=== PATIENT | male | born 1975 | race Caucasian/White ===

== ENCOUNTER 2017-09-07 15:30 | Emergency (ER) | payer OTHER ==
--- NOTE | 2017-09-07 18:38 | ER Document Report ---
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 then go into the left eye. no fever or orbital swelling. Associated Symptoms: None Exacerbated by: Denies Relieved by: Denies - ROS ROS below otherwise negative: Yes Systems Reviewed and Negative: Yes All other systems reviewed and negative - EENT EENT: REPORTS: Eye problems Past Medical History - General Information source: Patient - Social History Smoking Status: Unknown if Ever Smoked Frequency of alcohol use: None Drug Abuse: None Lives with: Family Family History: Reviewed & Not Pertinent Patient has suicidal ideation: No Patient has homicidal ideation: No - Medical History Medical History: Negative Renal/ Medical History: Denies: Hx Peritoneal Dialysis Surgical Hx: Negative Vertical Provider Document - CONSTITUTIONAL Agree With Documented VS: Yes Exam Limitations: No Limitations General Appearance: No Apparent Distress - INFECTION CONTROL TRAVEL OUTSIDE OF THE [place] IN LAST 30 DAYS: No - HEENT HEENT: Conjuctival Injection - delphine palprebral more than bulabr. anteior chamber clear, no fluorescein uptake. no ulcer.no preauricular nodes. - NECK Neck: Supple. negative: Lymphadenopathy-Left, Lymphadenopathy-Right - RESPIRATORY O2 Sat by Pulse Oximetry: 97 - NEURO Level of Consciousness: Awake, Alert Course - Re-evaluation Re-evalutation: 09/07/17 18:51 Visual acuity 20/25 each eye. 09/07/17 19:42 tonopen 19.95 right, 18.95 left eye 09/07/17 19:58 Patient did not have the money to get the eyedrops so I dispensed from the pharmacy here - Vital Signs Vital signs: Temp Pulse Resp BP Pulse Ox 98.3 F 96 16 199/106 H 97 09/07/17 18:31 09/07/17 18:31 09/07/17 18:31 09/07/17 18:31 09/07/17 18:31 Discharge - Discharge Clinical Impression: Bilateral conjunctivitis Qualifiers: Conjunctivitis type: acute Acute conjunctivitis type: unspecified Qualified Code(s): H10.33 - Unspecified acute conjunctivitis, bilateral Condition: Good Disposition: HOME, SELF-CARE Instructions: Conjunctivitis ([facility]), Eyedrop Use ([facility]) Additional Instructions: 1 eye drop each every 3 times per day for 7 days if your eyes are not well on sunday see the eye doctor if your eyes wosen over the weekend return to the ER for recheck Prescriptions: Besifloxacin HCl [Besivance 0.6% Oph Susp 5 ml] 1 drop OU TID #1 bottle Referrals: JOSE M ZHANG MD [ACTIVE STAFF] - Follow up as needed
[2017-09-07] MEDS ORDERED: TETRACAINE HCL 0.5% OPH SOLN 0.6 ML DROPERETTE OU ONE (18:56)
[2017-09-07 19:56] VITALS: BP 166/105
[2017-09-07] MEDS ORDERED: BESIFLOXACIN HCL 0.6% OPH SUSP 5 ML BOTTLE OU ONE (19:58)
== END 2017-09-07 20:07 | disposition home or self-care (01) ==
LOC: ER 15:30
DX: H10.33 Unspecified acute conjunctivitis, bilateral (principal)
CPT/HCPCS: 99282

== ENCOUNTER → 2017-09-25 | Outpatient (CLI) | payer OTHER ==
[2017-09-25 09:25] LABS: ABSOLUTE BASOPHILS # (AUTO) 0.1 10^3/uL (0.0-0.2); ABSOLUTE EOSINOPHILS # (AUTO) 0.3 10^3/uL (0.0-0.6); ABSOLUTE LYMPHOCYTES (AUTO) 1.5 10^3/uL (0.5-4.7); ABSOLUTE MONOCYTES (AUTO) 0.8 10^3/uL (0.1-1.4); ABSOLUTE NEUT (AUTO) 6.9 10^3/uL (1.7-8.2); BASOPHILS % (AUTO) 0.9 % (0-2); EOSINOPHILS % (AUTO) 2.9 % (0-6); HEMATOCRIT 39.3 % (37.9-51.0); HEMOGLOBIN 13.3 g/dL (13.5-17.0); LYMPHOCYTES % (AUTO) 15.7 % (13-45); MEAN CORPUSCULAR HEMOGLOBIN 30.1 pg (27.0-33.4); MEAN CORPUSCULAR HGB CONC 33.9 g/dL (32.0-36.0); MEAN CORPUSCULAR VOLUME 89 fl (80-97); MONOCYTES % (AUTO) 8.1 % (3-13); PLATELET COUNT 264 10^3/uL (150-450); RED BLOOD COUNT 4.42 10^6/uL (4.35-5.55); RED CELL DISTRIBUTION WIDTH 13.5 % (11.5-14.0); SEGMENTED NEUTROPHILS % (AUTO) 72.4 % (42-78); TOTAL CELLS COUNTED % (AUTO) 100 %; WHITE BLOOD COUNT 9.6 10^3/uL (4.0-10.5)
[2017-09-25 09:42] LABS: ALBUMIN 3.6 g/dL (3.5-5.0); ANION GAP 9 (5-19); BLOOD UREA NITROGEN 39 mg/dL (7-20); CALCIUM 9.6 mg/dL (8.4-10.2); CARBON DIOXIDE 24 mmol/L (22-30); CHLORIDE 111 mmol/L (98-107); GLUCOSE 93 mg/dL (75-110); PHOSPHORUS 4.4 mg/dL (2.5-4.5); POTASSIUM 4.5 mmol/L (3.6-5.0); SODIUM 143.9 mmol/L (137-145)
[2017-09-25 09:57] LABS: 24 HR URINE CREAT RESULT 1.8 mg/day (0.8-2.0); URINE CREATININE 60.3 mg/dL (22-328); URINE CREATININE 60.5 mg/dL (22-328)
[2017-09-25 10:11] LABS: 24 HOUR URINE PROTEIN RESULT 8772 mg/day (42-225); URINE PROTEIN 292.4 mg/dL (<12)
[2017-09-25 10:12] LABS: CREATININE 3.68 mg/dL (0.52-1.25)
[2017-09-26 07:09] LABS: VITAMIN D 25-HYDROXY 10.6 ng/mL (30.0-100.0)
[2017-09-26 15:38] LABS: ALBUMIN 2 2.9 g/dL (2.9-4.4); ALPHA-2-GLOBULIN 2 0.8 g/dL (0.4-1.0); GAMMA GLOBULIN 0.9 g/dL (0.4-1.8); GLOBULIN TOTAL 2.8 g/dL (2.2-3.9); MONOCLONAL SPIKE Not Observed g/dL (Not Observed); PROTEIN TOTAL SERUM 5.7 g/dL (6.0-8.5)
== END ==
LOC: OD 08:46
PROVIDERS: ATTEND Internal Medicine Nephrology
DX: N18.9 Chronic kidney disease, unspecified (principal); R80.9 Proteinuria, unspecified
CPT/HCPCS: 36415; 80048; 82040; 82306; 82570; 82575; 83970; 84100; 84156; 84165; 85025

== ENCOUNTER 2020-09-11 11:38 | Emergency (ER) | payer OTHER ==
--- NOTE | 2020-09-11 12:06 | ER Document Report ---
ED Medical Screen (RME) - General Chief Complaint: Abdominal Pain Stated Complaint: BLEEDING FROM [place] Time Seen by Provider: 09/11/20 12:03 Primary Care Provider: RHONDA GUERRERO MD [Primary Care Provider] - Follow up as needed Notes: HPI: 45-year-old male who is a dialysis patient presenting for evaluation of bleeding from the umbilicus today after dialysis. States this is happened previously but it seemed to stop on its own. This is the first time he is coming to have it evaluated. Denies specific abdominal pain at this time but has had intermittent abdominal cramping. Patient normally gets dialysis Sunday and Sunday and did finish his dialysis today. Follows with Dr. Wilkerson PHYSICAL EXAMINATION: Morbidly obese abdomen, difficult exam secondary to lighting. There is some dried blood around the umbilicus but unable to see a definitive source. Fistula left upper arm is noted I have greeted and performed a rapid initial assessment of this patient. A comprehensive ED assessment and evaluation of the patient, analysis of test results and completion of medical decision making process will be conducted by an additional ED providers. Please note that clinical decision making for this patient was made during the 2019 pandemic of novel coronavirus which caused a significant strain on the healthcare system including at this particular facility. Criteria for admission discharge and level of care decisions as well as treatment decisions have necessarily changed TRAVEL OUTSIDE OF THE [place] IN LAST 30 DAYS: No - Related Data Allergies/Adverse Reactions: No Known Allergies Allergy (Verified 09/11/20 12:03) Past Medical History Renal/ Medical History: Denies: Hx Peritoneal Dialysis Physical Exam - Vital signs Vitals: Temp Pulse Resp BP Pulse Ox 98.3 F 101 H 22 H 146/76 H 96 09/11/20 11:48 09/11/20 11:48 09/11/20 11:48 09/11/20 11:48 09/11/20 11:48 Course - Vital Signs Vital signs: Temp Pulse Resp BP Pulse Ox 98.3 F 101 H 22 H 146/76 H 96 09/11/20 11:48 09/11/20 11:48 09/11/20 11:48 09/11/20 11:48 09/11/20 11:48 Doctor's Discharge - Discharge Referrals: RHONDA GUERRERO MD [Primary Care Provider] - Follow up as needed
--- NOTE | 2020-09-11 12:16 | ER Document Report ---
ED GI/ - General Chief Complaint: Abdominal Pain Stated Complaint: BLEEDING FROM [place] Time Seen by Provider: 09/11/20 12:03 Primary Care Provider: RHONDA GUERRERO MD [Primary Care Provider] - Follow up as needed Notes: HPI: 45-year-old male with past medical history as recorded who presents today with some bleeding from his bellybutton. Patient states he finished dialysis and stood up and he started to have a little bleeding from the bellybutton. Patient states he has had this "multiple times in the past". He denies any and all abdominal pain, lightheadedness or dizziness. He states it became hemostatic when he arrived. Patient denies any other symptoms at this time. ROS: See HPI All other review of systems reviewed and otherwise negative Reviewed vital signs and nursing note as charted by RN. PHYSICAL EXAM: CONSTITUTIONAL: Alert and oriented and responds appropriately to questions. Well-appearing; well-nourished HEAD: Normocephalic; atraumatic EYES: Clear is not pale CARD: Regular rate and rhythm; no murmurs; symmetric distal pulses RESP: Normal chest excursion without splinting or tachypnea; breath sounds clear and equal bilaterally; no wheezes, no rhonchi, no rales ABD/GI: Very elevated BMI; no tenderness palpated. Some chronic appearing skin lesions to the lower abdomen that he states has been there for "years". These look like multiple old healing abscesses. He states he has never seen a director of financial reporting for this. Patient has some dried blood in the umbilicus region with a small scab to a very small abrasion-like lesion. No erythema, fluctuance, induration BACK: The back appears normal and is non-tender to palpation EXT: Normal ROM in all joints; good thrill to the left arm with no bleeding to the fistula site SKIN: Please see above NEURO: Range of motion of all 4 extremities PSYCH: The patient's mood and manner are appropriate. Grooming and personal hygiene are appropriate. TRAVEL OUTSIDE OF THE [place] IN LAST 30 DAYS: No - Related Data Allergies/Adverse Reactions: No Known Allergies Allergy (Verified 09/11/20 12:03) Past Medical History - Social History Smoking Status: Unknown if Ever Smoked Family History: Reviewed & Not Pertinent Renal/ Medical History: Denies: Hx Peritoneal Dialysis Physical Exam - Vital signs Vitals: Temp Pulse Resp BP Pulse Ox 98.3 F 101 H 22 H 146/76 H 96 09/11/20 11:48 09/11/20 11:48 09/11/20 11:48 09/11/20 11:48 09/11/20 11:48 Course - Re-evaluation Re-evalutation: 09/11/20 12:15 Given the above history and physical, with multiple episodes of this previously, with a small scab that is hemostatic to the bellybutton region, with multiple old scars to the lower abdomen, I do not believe any intervention or laboratory work is necessary at this time. Patient is stable vital signs and currently has no pain no signs of infection. Given the chronic nature of the patient's multiple wounds with a history of diabetes, I have discussed with the patient the importance of follow-up for assessment and possibly referral to dermatology. Patient understands these instructions. Strict return precautions have been explained. - Vital Signs Vital signs: Temp Pulse Resp BP Pulse Ox 98.3 F 101 H 22 H 146/76 H 96 09/11/20 11:48 09/11/20 11:48 09/11/20 11:48 09/11/20 11:48 09/11/20 11:48 - Laboratory Results Critical Laboratory Results Reviewed: No Critical Results - Radiology Results Critical Radiology Results Reviewed: No Critical Results Discharge - Discharge Clinical Impression: Skin lesion Condition: Good Disposition: HOME, SELF-CARE Additional Instructions: Come back immediately for any rebleeding, swelling of the abdomen and bellybutton, fever or vomiting, or any other acute problems. Please follow-up with your primary care physician for reassessment as we have discussed regarding your chronic lower skin lesions. Referrals: RHONDA GUERRERO MD [Primary Care Provider] - Follow up as needed
[2020-09-11 13:28] VITALS: BP 160/100
== END 2020-09-11 13:29 | disposition home or self-care (01) ==
LOC: ER 11:38
DX: L98.9 Disorder of the skin and subcutaneous tissue, unspecified (principal); E11.9 Type 2 diabetes mellitus without complications; E66.01 Morbid (severe) obesity due to excess calories; Z99.2 Dependence on renal dialysis
CPT/HCPCS: 99283